=== PATIENT | female | born 1985 | race Caucasian/White ===

== ENCOUNTER → 2024-12-03 | Outpatient (CLI) | payer SELFPAY ==
[2024-12-03 13:53] LABS: Hepatitis B Surface Antibody Nonreactive; Hepatitis B Surface Antigen Nonreactive (Nonreactive); Vitamin B12 1403 pg/mL (180-914); Vitamin D,25 Hydroxy 42.4 ng/mL (30-100)
[2024-12-03 14:13] LABS: CRP < 3.00 mg/L (0.0-3.0)
[2024-12-09 00:07] LABS: Hepatitis B Core Ab Total Negative (Negative); QNTFERON TB Mitogen Value > 10.00 IU/mL (.); QNTFERON TB Nil Value 0.02 IU/mL (.); QNTFERON TB1+ Ag Value 0.02 IU/mL (.); QNTFERON TB2+ Ag Value 0.06 IU/mL (.); QNTIFERON TB Positive Criteria Negative (Negative); Zinc, Plasma or Serum 62 ug/dL (44-115)
== END | disposition home or self-care (01) ==
LOC: LAB 12:20
PROVIDERS: PCP Nurse Practitioner Family; Referring Provider Nurse Practitioner Acute Care; Visit Provider Nurse Practitioner Acute Care
DX: K50.10 Crohn's disease of large intestine without complications (principal); R10.31 Right lower quadrant pain; R12 Heartburn; R11.0 Nausea
CPT/HCPCS: 82306; 82607; 84630; 86140; 86480; 86704; 86706; 87340

== ENCOUNTER → 2024-12-10 | Outpatient (CLI) | payer SELFPAY ==
[2024-12-11 21:07] LABS: H. PYLORI STOOL AG Negative (Negative)
[2024-12-12 08:08] LABS: Calprotectin, Stool 74 ug/g (0-120)
== END | disposition home or self-care (01) ==
LOC: LABSPEC 09:52
PROVIDERS: PCP Nurse Practitioner Family; Referring Provider Nurse Practitioner Acute Care; Visit Provider Nurse Practitioner Acute Care
DX: R11.0 Nausea (principal); K50.10 Crohn's disease of large intestine without complications; R12 Heartburn; R10.31 Right lower quadrant pain; R19.7 Diarrhea, unspecified
CPT/HCPCS: 83993; 87338

== ENCOUNTER → 2025-01-07 | Outpatient (CLI) | payer SELFPAY ==
--- NOTE | 2025-01-07 12:25 | MRI_ITS ---
EXAM: MRI of the abdomen/pelvis with IV contrast (MR enterography). CLINICAL HISTORY: Crohn's disease of the large intestine, without complication. Right lower quadrant tenderness. COMPARISON: None available TECHNIQUE: Multiplanar, multisequence MRI images of the abdomen and pelvis were obtained without and with intravenous contrast. 13 cc Clariscan IV contrast was administered. FINDINGS: Included osseous structures of the abdomen/pelvis, as well as the lower thorax are unremarkable. Heart is not enlarged. No sizable pericardial effusion. Lower lungs grossly clear. No large abdominal wall defect. There is moderate fluid signal in the stomach. No filling defects in the gallbladder or abnormal dilation of the biliary tree. No abdominal/pelvic adenopathy or ascites. Origins of the hamstring complexes are intact. No sizable greater trochanteric bursal fluid collection. The urinary bladder is not well distended, grossly unremarkable. The uterus is present, without dominant uterine myometrial or cervical mass. There is a nonenhancing simple appearing 3.6 cm right ovarian cyst. No dominant liver lesion. The adrenal glands, spleen, and pancreas show no specific abnormality. The kidneys are symmetric in size and enhancement. No solid-appearing renal mass or obstructive uropathy. No abnormally dilated bowel segments or free intraperitoneal air demonstrated. Moderate stool in the colon. The appendix is not well demonstrated. No secondary findings of acute appendicitis. There are some segments of small bowel in the mid anterior abdomen which demonstrate mild wall thickening, without adjacent inflammatory changes. No drainable abdominal/pelvic fluid collection. A few small left adnexal follicles, the largest measuring 16 mm. MRI/Enterography Abd/Pel IMPRESSION: Some small bowel segments in the anterior mid abdomen demonstrate some mild wal l thickening, without adjacent inflammatory changes. The finding may be due to mild inflammatory bowel disease without amy dence of bowel obstruction or perforation. The terminal ileum and ascending colon are grossly unremarkable. No evidence o f acute appendicitis. There is a 3.6 cm simple appearing right adnexal cyst. This could be a cause f or right lower quadrant pain. If there is any clinical concern for torsion, further evaluation with pelvic ultrasound would b e recommended. Otherwise, suggest a follow-up pelvic ultrasound in 1-2 menstrual cycles. The solid organs of the abdomen are unremarkable. Reading Location: [facility]
== END | disposition home or self-care (01) ==
LOC: MRI 12:16
PROVIDERS: PCP Nurse Practitioner Family; Referring Provider Nurse Practitioner Acute Care; Visit Provider Nurse Practitioner Acute Care
DX: K50.10 Crohn's disease of large intestine without complications (principal); R10.31 Right lower quadrant pain; R12 Heartburn; R11.0 Nausea
CPT/HCPCS: 74183; A9575; A4216

== ENCOUNTER → 2025-02-11 | Outpatient (CLI) | payer SELFPAY | END | disposition home or self-care (01) | LOC: LAB 10:52 | PROVIDERS: PCP Nurse Practitioner Family; Referring Provider Otolaryngology; Visit Provider Otolaryngology | DX: T78.40XA Allergy, unspecified, initial encounter (principal) | CPT/HCPCS: 36415 ==

== ENCOUNTER 2025-02-18 05:33 | Day surgery (SDC) | payer SELFPAY ==
[2025-02-18] VITALS (8 sets, daily range): BP systolic 80–105; BP diastolic 47–66; PULSE 67–80; RESP 16–18; TEMP 36.1–37.1; O2SAT 99–100; BMI 24.2
[2025-02-18] MEDS: Lactated Ringers 1,000 ML 15 ML IV (06:10)
[2025-02-18 06:12] LABS: Internal QC Validated? YES +Cl - CLEAR BKGD; Pregnancy, Urine Negative Negative
--- NOTE | 2025-02-18 06:30 | EGD_PTH ---
PATIENT: ANNABELLE QUINTANA LOC: EN U#:[id number] AGE/SX: 40/F ROOM: RE02/18/[address]: Dr. David Guerrero DO : 1985 BED: DIS: 02/18/2025 SPEC #: [id number] RECD: 02/18/25 08:14 STATUS: CASIMIRO PATEL #: [id number] DUKE: 02/18/25 06:[address]: David Guerrero DEPT: SURGICAL PATHOLOGY RECD BY: Justus Posadas ENTERED: 02/18/25 08:36 SP TYPE: EGD BIOPSY JOSE DR: Jovita Sanches, SALES AND MARKETING MANAGER-C Tissues: A - Duodenum, NOS B - Gastric mucous membrane C - Esophagus, NOS D - Ileum, NOS E - COLON BIOPSY F - COLON BIOPSY G - Rectum, NOS Procedures: Immunohistochemical Stains Surgery Specimen Level IV HEADER OPERATION: Colonscopy with biopsy, EGD with biopsy PRE-OP DIAGNOSIS: Crohn's colitis, right lower quadrant abdominal pain, heartburn, nausea, diarrhea TISSUE SUBMITTED: A- Duodenum biopsy, B- Gastric body biopsy, C- Random esophagus biopsy, D- Terminal ileum biopsy, E- Right colon biopsy, F- Left colon biopsy, G- Rectum biopsy MICROSCOPIC DIAGNOSIS A. Small bowel, duodenum, biopsy: Villous blunting with intraepithelial lymphocytosis - see note. No granulomas or dysplasia seen. Note: This pattern of injury is etiologically nonspecific?and the differential diagnosis includes sensitivity to gluten and non-gluten proteins, small intestinal bacterial overgrowth, stasis related changes, infection, protein calorie malnutrition, tropical sprue, and medication injury (NSAIDs, Olmesartan / Benicar, Mycophenolic acid, Idelalisib, for example). If celiac disease is a clinical concern, additional clinical studies, such as tTG-IgA, are recommended. B. Stomach, gastric body, biopsy: Oxyntic mucosa with mild chronic inflammation. IHC negative for H.pylori organisms. C. Esophagus, random, biopsy: Squamous mucosa negative for eosinophils. D. Small bowel, terminal ileum, biopsy: Fragments of small intestinal mucosa with active chronic ileitis. No granulomas or dysplasia seen. E. Colon, right, biopsy: No specific pathologic change. No granulomas or dysplasia seen. F. Colon, left, biopsy: Focal active inflammation. No granulomas or dysplasia seen. G. Rectum, biopsy: No specific pathologic change. No granulomas or dysplasia seen. MICROSCOPIC DESCRIPTION Slides are reviewed. All matched controls reacted appropriately. These tests were developed and their performance characteristics determined by [facility]. They may not have been cleared or approved by the U.S. Food and Drug Administration. The FDA has determined that such clearance or approval is not necessary. The above immunohistochemical/dualISH markers are ordered and reviewed by the Pathologist. GROSS DESCRIPTION A. Received in formalin in a container labeled with the patient's name, date of , and duodenum biopsy are multiple baer-pink fragments of mucosal tissue measuring 1.2 x 0.5 x 0.2 cm in aggregate. Submitted in toto in A1. B. Received in formalin in a container labeled with the patient's name, date of , and gastric body biopsy are multiple baer-pink fragments of mucosal tissue measuring 0.8 x 0.8 x 0.2 cm in aggregate. Submitted in toto in B1. C. Received in formalin in a container labeled with the patient's name, date of , and random esophagus are multiple baer-pink fragments of mucosal tissue measuring 0.8 x 0.6 x 0.2 cm in aggregate. Submitted in toto in C1. D. Received in formalin in a container labeled with the patient's name, date of , and terminal ileum biopsy are multiple baer-pink fragments of mucosal tissue measuring 1.7 x 0.7 x 0.2 cm in aggregate. Submitted in toto in D1. E. Received in formalin in a container labeled with the patient's name, date of , and right colon biopsy are multiple baer-pink fragments of mucosal tissue measuring 1.5 x 0.5 x 0.2 cm in aggregate. Submitted in toto in E1. F. Received in formalin in a container labeled with the patient's name, date of , and left colon biopsy are multiple baer-pink fragments of mucosal tissue measuring 1.5 x 0.6 x 0.2 cm in aggregate. Submitted in toto in F1. G. Received in formalin in a container labeled with the patient's name, date of , and biopsy rectum are 2 baer-pink fragments of mucosal tissue measuring 0.4 x 0.3 x 0.2 cm and 0.6 x 0.2 x 0.2 cm. Submitted in toto in G1. [facility] 02-18-2025 CPT:[id number]
--- NOTE | 2025-02-18 06:45 | PRE.ANES_ITS ---
ASA Classification* ASA Classification ASA Classification: 2 Assessment & Plan Anesthesia* Anesthesia Assessment Anesthesia Assessment: Discussed sedation and/or anesthesia options, risks, benefits, and alternatives with patient/parents/legal guardian/POA. Questions invited. The patient/parents/legal guardian/POA seems to understand and agrees to proceed with anesthesia plan. Reviewed the physical assessment, medical history, allergy history and patient home medications list prior to surgery/procedure/anesthetic and documented any changes. Performed airway and anesthesia risk assessments. 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 When Was Last Pacemaker Check QUESTION #4 FULL TEXT: You/Your Family Experience fever (hyperthermia) with Anesthesia Last Oral Intake Last Oral intake: Last Oral Intake NPO since 01:30 02/18/25 06:04 Meds taken in AM with sips of water? Meds patient instructed to take am of surgery PONV PONV - resident services supervisor: PONV - resident services supervisor Female Yes 02/16/25 16:38 HX of Motion Sickness Yes 02/16/25 16:38 HX of N/V After Surgery Yes 02/16/25 16:38 Non-Smoker Yes 02/16/25 16:38 Duration of Surgery greater No 02/16/25 16:38 than 60 minutes Number of Risk Factors 4 02/16/25 16:38 PONV Score Severe Risk 02/16/25 16:38 Height & Weight Height & Weight: Anesthesia: Height & Weight Height 5 ft 6 in 02/18/25 06:04 Weight: 68 kg 02/18/25 06:04 Body Mass Index (BMI) 24.2 02/18/25 06:04 Respiratory Assessment Respiratory Assessment - resident services supervisor: Respiratory Tract Infection Hx - resident services supervisor Hx Respiratory Tract Infection No 02/16/25 16:38 STOP Sleep Apnea STOP Sleep Apnea - resident services supervisor: STOP Sleep Apnea - resident services supervisor Hx Hypertension No 02/16/25 16:38 Hx Sleep Apnea No 02/16/25 16:38 CPAP BIPAP Do you snore loudly (louder No 02/16/25 16:38 than talking or can be heard Do you often feel tired/ No 02/16/25 16:38 fatigued/ sleepy during daytime? Has anyone observed you stop No 02/16/25 16:38 breathing during sleep? STOP Results Negative 02/16/25 16:38 QUESTION #5 FULL TEXT : Do you snore loudly (louder than talking or can be heard through closed doors)? 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 Specify any problems Hx of Preganancy in last 3 No 02/16/25 16:38 Months Nurse Filling Out Transfusion MGRIFFITH 02/16/25 16:38 & Questions: Date: 02/16/25 02/16/25 16:38 Time: 16:40 02/16/25 16:38 Patient unable to answer at this time (ie. confused, unrespo /Reproduction History /Reproductive History - resident services supervisor: /Reproductive Hx- resident services supervisor Hx Now No 02/16/25 16:38 Gestational Age (in weeks): EDC: Hx Hx Para Hx Section SAB No 02/16/25 16:38 Active Medications Active Medications: Current Medications Generic Name Dose Route Start Last Admin Trade Name Freq PRN Reason Stop Dose Admin Lactated Ringer's 1,000 mls @ 15 mls/hr 02/18/25 06:00 02/18/25 06:10 IV 15 mls/hr .Q48H DARRELL Administration PFSH Medical History Wears contact lenses Wears glasses Acne History of GI bleed Non-smoker Thyroid disease Osteoarthritis Crohn's colitis Kidney stones Hypoglycemia Hives Arthritis Seasonal allergies Home Medications ?Medication ?Instructions ?Recorded ?Last Taken ?Type Saccharomyces boulardii 250 mg 250 mg PO QDAY 12/03/24 Unknown History capsule (Daily Probiotic (S. boulardii)) cetirizine 10 mg tablet 10 mg PO QDAY 12/03/24 Unkno wn History levonorgestrel (Mirena) 1 device intrauterine ONCE 0 12/03/24 Unknown History levothyroxine 88 mcg tablet 88 mcg PO QDAY 12/03/24 History (Synthroid) mesalamine 0.375 gram 0.75 g PO BID 12/03/24 Unkno wn History capsule,extended release 24 hr ondansetron HCl 4 mg tablet 4 mg PO .COMPLEX #5 tabs 0 12/03/24 Unknown Rx spironolactone 25 mg tablet 25 mg PO QDAY 12/03/24 Unk nown History spironolactone 25 mg tablet 50 mg PO QDAY 12/03/24 Unk nown History Allergy/AdvReac Type Severity Reaction Status Date / Time bee venom protein (honey Allergy Severe Anaphylaxis Verified 02/18/25 06:02 bee) (bees) latex AdvReac Intermediate Rash Verified 02/18/25 06:02 Sulfa (Sulfonamide AdvReac Intermediate Swelling Verified 02/18/25 06:02 Antibiotics) Family History Mother Arthritis Cancer Thyroid disorder Father Arthritis Hypertension High cholesterol Grandmother Breast cancer Myocardial infarction Grandfather Myocardial infarction CVA (cerebral vascular accident) Brother Mental disorder Surgical History History of tonsillectomy History of colonoscopy Social History Smoking Status: Never smoker alcohol intake: never substance use type: does not use what type of physical activity do you participate in: other details: exercise frequency: daily Review of Systems (Anesthesia) ROS Narrative System reviewed and no additional complaints, except as documented.
--- NOTE | 2025-02-18 06:48 | HP.PCM_ITS ---
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 INITIAL Diagnosis: 2007 Presenting Symptoms: terrible squeezing RLQ pain, emesis, would have intermittent episodes of these symptoms - diagnosed December 2007 - April 2008 GIB secondary to left colon inflammation, 2u PRBC CBC: 11/25/2024 unremarkable CMP: 11/25/2024 unremarkable CRP: not on record B12: not on record Vitamin D: not on record Zinc: not on record QUANTIFERON: not on record HBVsAb: not on record HBVsAg: not on record HBV Core Total Ab: not on record Fecal Calprotectin: not on record SB imaging: SBFT 05/14/2008 no evidence of ulcer or nodularity COLON: 04/24/2021 Erythematous and fqlogdff-keovfif-yeeoazjge mucosa in the descending colon. Congested, erythematous, eroded, granular, hemorrhagic, inflamed, ulcerated and wgkwaksc-opmtglt-nigtfgqzg mucosa in the TI TI: active enteritis Ascending: no active inflammation Descending: patchy active colitis 02/01/2014 COLON: crohn's disease with ileitis, the entire examined colon appeared normal 05/11/2008 COLON: transverse - IBD is present, focal erosion, suggestive of cryptitis, focal moderately severe chronic inflammation, no dysplasia, Descending colon mild chronic colitis MEDS: Apriso 1 BID - she will increase to 2 BID when she has symptom flare BIOLOGICS: naive STEROIDS: 2014 she was on Uceris - she has had 5 children since diagnosed and has been on and off meds due to and breast feeding VACCINES COVID: denies Varicella Vaccine: exposed as a child Shingles Vaccine: denies Hepatitis B Vaccine: yes previously vaccinated Pneumonia Vaccine: denies Influenza Vaccine: denies NEW SYMPTOMS - nausea and HB over the past few months with mild epigastric pain, worse with eating - denies any emesis FLARES - squeezing RLQ pain, can get diarrhea, occasional left sided abd pain, - reports her last bad flare was a couple years ago - has been able to manage with changing diet and increasing Apriso - more recently she has been experiencing constipation and diarrhea IBD SYMPTOMS: Bowel movements are: BM 2x a day, usually soft - constipation very solid and difficult to pass, can go 2 days without a BM Blood noted in stools: recently has had some bleeding, thinks this is from a hemorrhoid Bowel movement urgency present: occasional Stool incontinence: denies Nocturnal BM's: denies Abdominal pain: intermittent Rectal pain: pressure and pain this past fall and she was experiencing bleeding QOL: she does miss events or have to call off work due to diarrhea, has not had to call off work in a year, did cancel plans this past fall due to symptoms ROS: Fever: denies Night Sweats: denies Visual changes: denies Mouth sores: denies Joint pain: denies Skin rashes/Lesions: denies Weight changes: denies Smoking status: denies NSAID use: rare use RECALL COLONOSCOPY NOW [facility] Medical History Wears contact lenses Wears glasses Acne History of GI bleed Non-smoker Thyroid disease Osteoarthritis Crohn's colitis Kidney stones Hypoglycemia Hives Arthritis Seasonal allergies Home Medications ?Medication ?Instructions ?Recorded ?Last Taken ?Type Saccharomyces boulardii 250 mg 250 mg PO QDAY 12/03/24 Unknown History capsule (Daily Probiotic (S. boulardii)) cetirizine 10 mg tablet 10 mg PO QDAY 12/03/24 Unkno wn History levonorgestrel (Mirena) 1 device intrauterine ONCE 0 12/03/24 Unknown History levothyroxine 88 mcg tablet 88 mcg PO QDAY 12/03/24 History (Synthroid) mesalamine 0.375 gram 0.75 g PO BID 12/03/24 Unkno wn History capsule,extended release 24 hr ondansetron HCl 4 mg tablet 4 mg PO .COMPLEX #5 tabs 0 12/03/24 Unknown Rx spironolactone 25 mg tablet 25 mg PO QDAY 12/03/24 Unk nown History spironolactone 25 mg tablet 50 mg PO QDAY 12/03/24 Unk nown History Allergy/AdvReac Type Severity Reaction Status Date / Time bee venom protein (honey Allergy Severe Anaphylaxis Verified 02/18/25 06:02 bee) (bees) latex AdvReac Intermediate Rash Verified 02/18/25 06:02 Sulfa (Sulfonamide AdvReac Intermediate Swelling Verified 02/18/25 06:02 Antibiotics) Family History Mother Arthritis Cancer Thyroid disorder Father Arthritis Hypertension High cholesterol Grandmother Breast cancer Myocardial infarction Grandfather Myocardial infarction CVA (cerebral vascular accident) Brother Mental disorder Surgical History History of tonsillectomy History of colonoscopy Social History Smoking Status: Never smoker alcohol intake: never substance use type: does not use what type of physical activity do you participate in: other details: exercise frequency: daily ROS Constitutional Constitutional: Denies fatigue, fever(s), poor appetite, weight gain or weight loss Gastrointestinal Gastrointestinal: Denies belching, bloating, change in bowel habits, change in stool character, chewing difficulty, coffee ground emesis, constipation, cramping, diarrhea, dyspepsia, dysphagia, early satiety, excessive flatus, fecal incontinence, heartburn, hematemesis, hematochezia, hemorrhoids, loose stools, melena, nausea, odynophagia, rectal bleeding, tenesmus, vomiting or weight changes Vital Signs Vital Signs Vital Signs: 02/18/25 06:04 02/18/25 06:04 02/18/25 06:45 Temperature 98.8 F 98.8 F Temperature Source Temporal Pulse Rate 80 80 Respiratory Rate 16 16 Respiratory Pattern Normal Blood Pressure 105/63 105/63 Blood Pressure Mean 77 Blood Pressure Source Monitor Blood Pressure Position Semi-Fowlers Blood Pressure Location Right Arm Pulse Ox 100 100 Oxygen Delivery Method Room Air Weight Weight: 149 lb 14.629 oz Body Mass Index (BMI) 24.2 Physical Exam Const alert, oriented x3, no apparent distress and healthy appearing General Appearance: cooperative GI normal to inspection, nondistended, normoactive bowel sounds, soft to palpation, non-tender and non-distended Percussion: normal to percussion Rectal Exam: deferred Results Lab / Micro Data Labs: Laboratory Results - last 24 hr 02/18/25 05:50: Urine Test Negative Assessment & Plan Assessment/Plan (1) Crohn's colitis: QUALIFIERS: Digestive disease complication type: without complication Qualified Code(s): K50.10 - Crohn's disease of large intestine without complications (2) Diarrhea: PLAN: Assessment and Plan Assessment and Plan (1) Crohn's colitis: Status: Acute Qualifiers: Digestive disease complication type: without complication Qualified Code(s): K50.10 - Crohn's disease of large intestine without complications (2) RLQ abdominal pain: Status: Acute (3) Heartburn: Status: Acute (4) Nausea: Status: Acute (5) Diarrhea: Status: Acute Orders: Orders CRP Today K50.10 - Crohn's disease of large intestine without complications, R10.31 - Right lower quadrant pain, R11.0 - Nausea, R12 - Heartburn Calprotectin, Stool Today K50.10 - Crohn's disease of large intestine without complications, R10.31 - Right lower quadrant pain, R11.0 - Nausea, R12 - Heartburn Quantiferon TB-Gold+ Today K50.10 - Crohn's disease of large intestine without complications, R10.31 - Right lower quadrant pain, R11.0 - Nausea, R12 - Heartburn Hepatitis B Core Ab Total Today K50.10 - Crohn's disease of large intestine without complications, R10.31 - Right lower quadrant pain, R11.0 - Nausea, R12 - Heartburn Hepatitis B Surface Antibody Today K50.10 - Crohn's disease of large intestine without complications, R10.31 - Right lower quadrant pain, R11.0 - Nausea, R12 - Heartburn Enterography Abd/Pel Today K50.10 - Crohn's disease of large intestine without complications, R10.31 - Right lower quadrant pain, R11.0 - Nausea, R12 - Heartburn Vitamin D,25 Hydroxy Today K50.10 - Crohn's disease of large intestine without complications, R10.31 - Right lower quadrant pain, R11.0 - Nausea, R12 - Heartburn Vitamin B12 Today K50.10 - Crohn's disease of large intestine without complications, R10.31 - Right lower quadrant pain, R11.0 - Nausea, R12 - Heartburn Zinc, Plasma or Serum Today K50.10 - Crohn's disease of large intestine without complications, R10.31 - Right lower quadrant pain, R11.0 - Nausea, R12 - Heartburn H. PYLORI STOOL AG Today K50.10 - Crohn's disease of large intestine without complications, R10.31 - Right lower quadrant pain, R11.0 - Nausea, R12 - Heartburn, R19.7 - Diarrhea, unspecified Medications: New ondansetron HCl 4 mg orally; take two tablets PO two hours prior to start of bowel prep and one every 4 hours as needed for N/V 5 tabs 0RF Plan 39y/o female presents for initial consultation with [facility] of Crohn's, She was initially diagnosed December 2007 with presenting symptoms of RLQ pain and emesis. She has managed her disease with Apriso 0.375g BID (1 tablet) and will increase to 0.75g BID (two tablet) with a flare. She has been on Uceris in the past as well. Her flare symptoms include RLQ pain and diarrhea and reports her last flare which affected her QOL requiring her to miss events was fall of 2023. She typically has two, soft, formed BM daily. She has been experiencing intermittent constipation and diarrhea with BRBPR. Colonoscopy was last performed March 2021 and revealed active enteritis and chronic active colitis in the descending colon. I have ordered labs, stool testing, MRE, and colonoscopy. We have discussed the AGA guidelines recommend against the use of mesalamine with delay in starting biologic therapy to achieve remission. She complains of nausea and HB, symptoms improve with PRN pepcid use. She denies any emesis or weight loss. Denies any history of prior EGD. I have ordered H. pylori stool testing and she will start pepcid daily once she completed. She will proceed with EGD as well. Patient Instructions: 1. Continue Apriso at current dose, we have discussed AGA guidelines suggest early introduction with a biologic with or w/o an immunomodulator rather than delaying their use until failure of mesalamine and/or corticosteroids 2. Complete labs and stool testing today 3. Complete MRE 4. EGD and Colonoscopy - Sutab sample provided 5. Follow-up post procedure to review findings and discuss treatment plan 6. Start OTC pepcid daily after completion of H. pylori stool testing Plan Details Follow Up: 2 Months
--- NOTE | 2025-02-18 07:34 | OP.CCLET_ITS ---
02/18/2025 Jovita Sanches Diesel Dinkey Operator, Diesel Dinkey Operator-c Re : Upper GI endoscopy procedure for Nuris Carpio Dear Myron This procedure was performed on January. My impressions and recommendations are as follows: Impressions : - Esophageal mucosal changes suggestive of eosinophilic esophagitis. - Erythematous mucosa in the gastric body. Biopsied. - Duodenal mucosal changes seen, diagnostic of celiac disease. Biopsied. - Biopsies were taken with a cold forceps for evaluation of eosinophilic esophagitis. Recommendations : - Discharge patient to home. - Resume previous diet. - Continue present medications. - Await pathology results. - Repeat upper endoscopy to check healing. My findings are described in the full procedure note, which is enclosed. If I can be of further assistance, please feel free to contact me at . Sincerely, David Guerrero, 02/18/2025 7:33:19 AM This report has been signed electronically.
--- NOTE | 2025-02-18 07:34 | OP.EGD_ITS ---
Patient Name: Nuris Carpio Procedure Date: 02/18/2025 6:20 AM Date of : 1985 Age: 40 Procedure: Upper GI endoscopy Indications: Epigastric abdominal pain, Dyspepsia Providers: David Guerrero DO Referring MD: Jovita Sanches Personnel Quality Assurance Auditor, Personnel Quality Assurance Auditor-c Medicines: Monitored Anesthesia Care Patient Profile: This is a 40 year old female. Refer to note in patient chart for documentation of history and physical. Patient has symptoms. Complications: No immediate complications. Procedure: Pre-Anesthesia Assessment: - Prior to the procedure, a History and Physical was performed, and patient medications and allergies were reviewed. The patient is competent. The risks and benefits of the procedure and the sedation options and risks were discussed with the patient. All questions were answered and informed consent was obtained. Patient identification and proposed procedure were verified by the physician in the pre-procedure area. Mental Status Examination: alert and oriented. Airway Examination: normal oropharyngeal airway and neck mobility. Respiratory Examination: clear to auscultation. CV Examination: normal. Prophylactic Antibiotics: The patient does not require prophylactic antibiotics. Prior Anticoagulants: The patient has taken no anticoagulant or antiplatelet agents except for NSAID medication. ASA Grade Assessment: II - A patient with mild systemic disease. After reviewing the risks and benefits, the patient was deemed in satisfactory condition to undergo the procedure. The anesthesia plan was to use monitored anesthesia care (MAC). Immediately prior to administration of medications, the patient was re-assessed for adequacy to receive sedatives. The heart rate, respiratory rate, oxygen saturations, blood pressure, adequacy of pulmonary ventilation, and response to care were monitored throughout the procedure. The physical status of the patient was re-assessed after the procedure. After obtaining informed consent, the endoscope was passed under direct vision. Throughout the procedure, the patient's blood pressure, pulse, and oxygen saturations were monitored continuously. The Colonoscope was introduced through the mouth, and advanced to the third part of the duodenum. Small bowel enteroscopy was deemed necessary. The upper GI endoscopy was accomplished without difficulty. The patient tolerated the procedure well. Scope In: 7:02:49 AM Scope Out: 7:08:34 AM Total Procedure Duration Time 0 hours 5 minutes 45 seconds Findings: Mucosal changes including feline appearance, longitudinal furrows, small-caliber esophagus and white plaques were found in the proximal esophagus, in the mid esophagus and in the distal esophagus. Biopsies were obtained from the proximal and distal esophagus with cold forceps for histology of suspected eosinophilic esophagitis. Verification of patient identification for the specimen was done. Estimated blood loss was minimal. Patchy mildly erythematous mucosa without bleeding was found in the gastric body. Biopsies were taken with a cold forceps for histology. Biopsies were taken with a cold forceps for Helicobacter pylori testing. Verification of patient identification for the specimen was done. Estimated blood loss was minimal. Decreased folds were found in the duodenal bulb, decreased folds were found in the third portion of the duodenum, decreased folds were found in the fourth portion of the duodenum, decreased folds were found in the entire duodenum, scalloped mucosa was found in the entire duodenum and thickened folds were found in the entire duodenum. Biopsies were taken with a cold forceps for histology. Verification of patient identification for the specimen was done. Estimated blood loss was minimal. Impression: - Esophageal mucosal changes suggestive of eosinophilic esophagitis. - Erythematous mucosa in the gastric body. Biopsied. - Duodenal mucosal changes seen, diagnostic of celiac disease. Biopsied. - Biopsies were taken with a cold forceps for evaluation of eosinophilic esophagitis. Recommendation: - Discharge patient to home. - Resume previous diet. - Continue present medications. - Await pathology results. - Repeat upper endoscopy to check healing. Procedure Code(s): --- Professional --- 20917, Small intestinal endoscopy, enteroscopy beyond second portion of duodenum, not including ileum; with biopsy, single or multiple CPT copyright 2021 [employer]. All rights reserved. The codes documented in this report are preliminary and upon section beamer review may be revised to meet current compliance requirements. David Guerrero DO 02/18/2025 7:33:19 AM This report has been signed electronically. Number of Addenda: 0 Note Initiated On: 02/18/2025 6:20 AM
--- NOTE | 2025-02-18 07:36 | PCM.POST.ANE ---
Anesthesia: Postop Eval I Current Vital Signs Temperature: 97 F Pulse Rate: 67 Blood Pressure: 102/60 Respiratory Rate: 16 Pulse Ox: 100 Oxygen Delivery Method: Room Air Assessment Airway patent: Yes Spontaneous unlabored respirations: Yes Mental status: Awake and Calm nausea: No Vomiting: No Anesthesia Complication: No Fluid Hydration Crystalloid volume administer (ml): 800 Total IV fluid infused: 800 Progress Note Anesthesia document: Postop Eval 1 completed: Yes
--- NOTE | 2025-02-18 07:39 | OP.CCLET_ITS ---
02/18/2025 Jovita Sanches Strategic Intelligence Officer, Strategic Intelligence Officer-c Re : Colonoscopy procedure for Nuris Carpio Dear Myron This procedure was performed on January. My impressions and recommendations are as follows: Impressions : - The entire examined colon is normal. Biopsied. - Colonic fistula. - Inflammatory bowel disease. Inflammation was found. This was severe. Biopsied. Recommendations : - Discharge patient to home. - Resume previous diet. - Continue present medications. - Await pathology results. - Repeat colonoscopy to assess disease activity. My findings are described in the full procedure note, which is enclosed. If I can be of further assistance, please feel free to contact me at . Sincerely, David Guerrero, 02/18/2025 7:38:49 AM This report has been signed electronically.
--- NOTE | 2025-02-18 07:39 | OP.COLON_ITS ---
Patient Name: Nuris Carpio Procedure Date: 02/18/2025 7:09 AM Date of : 1985 Age: 40 Procedure: Colonoscopy Indications: High risk colon cancer surveillance: Inflammatory bowel disease (unclassified) of 8 (or more) years duration with one-third (or more) of the colon involved Providers: David Guerrero DO Referring MD: Jovita Sanches Die Holder, Die Holder-c Medicines: Monitored Anesthesia Care Patient Profile: This is a 40 year old female. Refer to note in patient chart for documentation of history and physical. Patient has symptoms. Last Colonoscopy: date unknown. Unable to locate last colonoscopy report. Complications: No immediate complications. Procedure: Pre-Anesthesia Assessment: - Prior to the procedure, a History and Physical was performed, and patient medications and allergies were reviewed. The patient is competent. The risks and benefits of the procedure and the sedation options and risks were discussed with the patient. All questions were answered and informed consent was obtained. Patient identification and proposed procedure were verified by the physician in the pre-procedure area. Mental Status Examination: alert and oriented. Airway Examination: normal oropharyngeal airway and neck mobility. Respiratory Examination: clear to auscultation. CV Examination: normal. Prophylactic Antibiotics: The patient does not require prophylactic antibiotics. Prior Anticoagulants: The patient has taken no anticoagulant or antiplatelet agents except for NSAID medication. ASA Grade Assessment: II - A patient with mild systemic disease. After reviewing the risks and benefits, the patient was deemed in satisfactory condition to undergo the procedure. The anesthesia plan was to use monitored anesthesia care (MAC). Immediately prior to administration of medications, the patient was re-assessed for adequacy to receive sedatives. The heart rate, respiratory rate, oxygen saturations, blood pressure, adequacy of pulmonary ventilation, and response to care were monitored throughout the procedure. The physical status of the patient was re-assessed after the procedure. After I obtained informed consent, the scope was passed under direct vision. Throughout the procedure, the patient's blood pressure, pulse, and oxygen saturations were monitored continuously. The Colonoscope was introduced through the anus and advanced to the terminal ileum. The colonoscopy was performed without difficulty. The patient tolerated the procedure well. The quality of the bowel preparation was adequate. The terminal ileum, ileocecal valve, appendiceal orifice, and rectum were photographed. Scope In: 7:10:45 AM Scope Withdrawal Time 0 hours 10 minutes 33 seconds Scope Out: 7:27:02 AM Total Procedure Duration Time 0 hours 16 minutes 17 seconds Findings: The perianal and digital rectal examinations were normal. The colon (entire examined portion) appeared normal. Biopsies were taken with a cold forceps for histology. Verification of patient identification for the specimen was done. Estimated blood loss was minimal. A 3 mm fistula was found in the cecum. Patchy inflammation characterized by friability, granularity, aphthous ulcerations, deep ulcerations and shallow ulcerations was found in the mid ileum, in the distal ileum and in the terminal ileum. The inflammation was severe. Biopsies were taken with a cold forceps for histology. Verification of patient identification for the specimen was done. Estimated blood loss was minimal. Impression: - The entire examined colon is normal. Biopsied. - Colonic fistula. - Inflammatory bowel disease. Inflammation was found. This was severe. Biopsied. Recommendation: - Discharge patient to home. - Resume previous diet. - Continue present medications. - Await pathology results. - Repeat colonoscopy to assess disease activity. Procedure Code(s): --- Professional --- 85046, Colonoscopy, flexible; with biopsy, single or multiple CPT copyright 2021 [employer]. All rights reserved. The codes documented in this report are preliminary and upon wood preserving plant laborer review may be revised to meet current compliance requirements. David Guerrero DO 02/18/2025 7:38:49 AM This report has been signed electronically. Number of Addenda: 0 Note Initiated On: 02/18/2025 7:09 AM
--- NOTE | 2025-02-18 08:15 | PCM.POSTANE2 ---
Anesthesia Postop Eval I Sum Postop Eval Completion status Anesthesia document: Postop Eval 1 completed: Yes Anesthesia Postop Eval I Summary Anesthesia Postop Eval I Summary: Anesthesia Postop Eval I: Assessment Summary Airway patent Yes 02/18/25 07:37 [email or web address] Spontaneous unlabored Yes 02/18/25 07:37 [email or web address] respirations Mental status Awake,Calm 02/18/25 07:37 [email or web address] nausea No 02/18/25 07:37 [email or web address] Vomiting No 02/18/25 07:37 [email or web address] Anesthesia Postop Eval I: Fluid Summary Crystalloid volume administer 800 02/18/25 07:37 [email or web address] (ml) Colloids volume administered ( ml) Blood Product volume administered (ml) Total IV fluid infused 800 02/18/25 07:37 [email or web address] Anesthesia Postop Eval I: Summary Notes Anesthesia Complication No 02/18/25 07:37 [email or web address] Anesthesia Complication Comment: Post-operative progress note Anesthesia: Postop Eval II Evaluation Mental status: Awake Pain Level: 0 nausea: No Vomiting: No
== END 2025-02-18 08:20 | disposition home or self-care (01) ==
LOC: EN 05:34 → AC 05:35
PROVIDERS: Anesthesiology; PCP Nurse Practitioner Family; Referring Provider Nurse Practitioner Family; Visit Provider Internal Medicine Gastroenterology
PROC: 0DJD8ZZ Inspection of Lower Intestinal Tract, Via Natural or Artificial Opening Endoscopic (ICD-10-PCS; CPT 45378; principal; 2025-02-18 06:25)
DX: K50.10 Crohn's disease of large intestine without complications (principal); R10.31 Right lower quadrant pain; K63.2 Fistula of intestine; Z87.442 Personal history of urinary calculi; E07.9 Disorder of thyroid, unspecified; R11.0 Nausea; R12 Heartburn
CPT/HCPCS: 45380; 44361; 81025; 88305; 88342; J2405

== ENCOUNTER → 2025-03-03 | Outpatient (CLI) | payer SELFPAY ==
[2025-03-05 14:09] LABS: Immunoglobulin A 232 mg/dL (87-352); t-Transglutaminase IgA 6 U/mL (0-3)
[2025-03-08 00:07] LABS: Beef <0.10 kU/L (Class 0); Chocolate <0.10 kU/L (Class 0); Codfish <0.10 kU/L (Class 0); Corn 0.16 kU/L (Class 0/I); Egg, Whole 0.24 kU/L (Class 0/I); Milk (Cow) <0.10 kU/L (Class 0); Mussels <0.10 kU/L (Class 0); Peanut 0.36 kU/L (Class I); Pork <0.10 kU/L (Class 0); Salmon <0.10 kU/L (Class 0); Shrimp <0.10 kU/L (Class 0); Soybean 0.15 kU/L (Class 0/I); Tuna <0.10 kU/L (Class 0); Wheat 0.35 kU/L (Class I)
== END | disposition home or self-care (01) ==
LOC: LAB 16:40
PROVIDERS: PCP Nurse Practitioner Family; Referring Provider Nurse Practitioner Acute Care; Visit Provider Nurse Practitioner Acute Care
DX: K50.10 Crohn's disease of large intestine without complications (principal); R19.7 Diarrhea, unspecified; R11.0 Nausea
CPT/HCPCS: 36415; 82784; 83516; 86003; 86005

== ENCOUNTER 2025-04-30 10:27 | Outpatient (CLI) | payer SELFPAY ==
[2025-04-30 10:39] VITALS: BP 129/78; PULSE 89; RESP 16; TEMP 35.8; O2SAT 100; BMI 22.6
[2025-04-30] MEDS: 0.9% NaCl IVPB Med Flush (100mL) 15 ML IV (10:50)
[2025-04-30] MEDS: 0.9% NaCl Peripheral Flush Adult IV (10:50)
[2025-04-30] MEDS: Ustekinumab 390 MG in 0.9% Normal Saline (250mL Bag) 172 ML 250 MG IV (11:08)
[2025-04-30 12:28] VITALS: BP 109/64; PULSE 63
== END 2025-04-30 23:59 | disposition home or self-care (01) ==
LOC: MEDOUTP 10:27
PROVIDERS: PCP Nurse Practitioner Family; Referring Provider Nurse Practitioner Acute Care; Visit Provider Nurse Practitioner Acute Care
DX: K50.80 Crohn's disease of both small and large intestine without complications (principal)
CPT/HCPCS: 96365; A4216; J3358